=== PATIENT | male | born 1995 | race Caucasian/White ===

== ENCOUNTER 2021-10-08 06:34 | Emergency (ER) | payer MEDICAID ==
[~2021-10-08] VITALS: Ht 177.8 cm; Wt 94.9 kg
[2021-10-08 07:00] VITALS: BP 125/85
[2021-10-08 08:19] LABS: BASOPHILS % 0.4 % (0.0-2.0); EOSINOPHILS % 6.5 % (0.0-5.0); HEMATOCRIT. 46.3 % (42.0-52.0); HEMOGLOBIN. 15.7 g/dL (14.0-18.0); LYMPHOCYTES % 17.8 % (20.0-50.0); MEAN CORPUSCULAR HEMOGLOBIN 28.5 pg (28.0-32.0); MEAN CORPUSCULAR VOLUME 84.2 fL (80.0-94.0); MEAN PLATELET VOLUME 7.8 fl (7.4-10.4); MONOCYTES % 4.5 % (2.0-8.0); NEUTROPHILS % 70.8 % (40.0-76.0); PLATELET 211 x1000/uL (130-400); RED BLOOD CELL COUNT 5.49 mill/uL (4.7-6.1); RED CELL DISTRIBUTION WIDTH 13.1 % (11.6-14.6)
[2021-10-08 08:26] LABS: CHLORIDE 105 mEq/L (98-107)
[2021-10-08] MEDS ORDERED: MAGNESIUM/ALUMINUM HYDROXIDE/SIMETHICONE 30ML UDC PO ONE (08:45)
[2021-10-08] MEDS ORDERED: ONDANSETRON 4MG ODT PO ONE (08:45)
[2021-10-08] MEDS ORDERED: FAMOTIDINE 20MG TABLET PO ONE (08:45)
[2021-10-08] MEDS ORDERED: ONDA4TAB50 MT (10:42)
[2021-10-08] MEDS ORDERED: AZIT500T8 MT (10:42)
[2021-10-08] MEDS ORDERED: FAMO40TA7 MT (10:42)
== END 2021-10-08 11:03 | disposition home or self-care (01) ==
LOC: EDBD 06:34 → ER 06:34
DX: K52.9 Noninfective gastroenteritis and colitis, unspecified (principal)
CPT/HCPCS: 36415; 74176; 80053; 83690; 85025; 85610; 99284; Q0162

== ENCOUNTER 2022-09-14 13:45 | Emergency (ER) | payer MEDICAID ==
[~2022-09-14 13:45] MED LIST: AZIT500T8 MT; FAMO40TA7 MT; ONDA4TAB50 MT
[2022-09-14 13:55] VITALS: PULSE 95
== END 2022-09-14 23:56 | disposition left against medical advice (07) ==
LOC: ER 14:49
DX: Z53.21 Procedure and treatment not carried out due to patient leaving prior to being seen by health care provider (principal)
CPT/HCPCS: 99281